=== PATIENT | male | born 1940 | race Caucasian/White ===

== ENCOUNTER 2017-10-04 10:12 | Day surgery (SDC) | payer MEDICARE, BC ==
[~2017-10-04 10:12] MED LIST: Buffered Lidocaine 0.9% SYRIN* 5 ML/SYR SYRINGE INTRADERM ONE
[2017-10-04] MEDS ORDERED: Ketorolac 0.5% OPHTH (NF) 0.5 % 5 ML BTL ONE (11:01)
[2017-10-04] MEDS ORDERED: Lidocaine 1%* 5 ML VIAL ONE (11:01)
[2017-10-04] MEDS ORDERED: Proparacaine 0.5% OPHTH.SOL* 15 ML BTL ONE (11:01)
[2017-10-04] MEDS ORDERED: Povidone Iodine 5% OPTH* 30 ML BTL ONE (11:01)
[2017-10-04] MEDS ORDERED: Lidocaine 2% EPI 1:200000 MPF*10-20 ML VIAL ONE (11:01)
[2017-10-04] MEDS ORDERED: Phenylephrine 2.5% OPTH.SOL* 2 ML BTL ONE (11:01)
[2017-10-04] MEDS ORDERED: acetaZOLAMIDE TAB* 250 MG ONE (11:01)
[2017-10-04] MEDS ORDERED: Cyclopentolate 1% OPTH.SOL* 2 ML BTL ONE (11:01)
[2017-10-04] MEDS ORDERED: Neomycin/Polymy/Dex OPTH.SUSP* MAXITROL 0.1% 5 ML ONE (11:01)
[2017-10-04] MEDS ORDERED: Midazolam* 1 MG/ML 2 ML VIAL (2 MG) ONE (12:59)
[2017-10-04 13:40] VITALS: BP 132/62
--- NOTE | 2017-10-04 15:40 | OP ---
DATE OF OPERATION: 10/04/2017. DATE OF : 1940. SURGEON: Pankaj García M.D. PREOPERATIVE DIAGNOSIS: Cataract left eye. POSTOPERATIVE DIAGNOSIS: Cataract left eye. OPERATIVE PROCEDURE: Extracapsular cataract extraction with intraocular lens implant left eye. PROCEDURE: The patient was brought to the operating room after being given 1/2 % Alcaine with epinephrine drops in the preoperative area. The eye was prepped and draped in the usual sterile fashion. Sterile drape and eyelid speculum were placed. Again, topical 1/2% Alcaine with epinephrine was given. A paracentesis incision was made at the 3 o'clock position with the No.75 blade. Clear cornea incision 2.2 x 2.2-mm was created at the 6 o'clock position starting at the anterior limbus using the 2.2-mm keratome. The anterior chamber was irrigated with 0.4 mL of 1% non-preservative intracameral lidocaine and filled with DisCoVisc. A capsulorrhexis was completed using the cystotome and the Utrata forceps. Hydrodissection was performed with balanced salt solution. The lens nucleus was removed with the Phacoemulsification handpiece without incident. Cortex was removed with the irrigation-aspiration handpiece. The capsular bag was re-inflated using DisCoVisc and an [id number] implant was inserted with the shooter. The irrigation-aspiration handpiece was used to remove all residual DisCoVisc. The eye was refilled with balanced salt solution and the wound checked and found to be watertight. Topical Maxitrol drops were given. [id number]/[facility] #: [id number] [facility] HOSPITALPamela
== END 2017-10-04 13:34 | disposition home or self-care (01) ==
LOC: OREAST 10:12
PROVIDERS: ATTEND Specialist
DX: H25.812 Combined forms of age-related cataract, left eye (principal); E11.3293 Type 2 diabetes mellitus with mild nonproliferative diabetic retinopathy without macular edema, bilateral; Z79.4 Long term (current) use of insulin; I25.10 Atherosclerotic heart disease of native coronary artery without angina pectoris; E78.00 Pure hypercholesterolemia, unspecified; I10 Essential (primary) hypertension; Z95.1 Presence of aortocoronary bypass graft; I25.2 Old myocardial infarction; Z95.810 Presence of automatic (implantable) cardiac defibrillator; Z87.891 Personal history of nicotine dependence; E78.5 Hyperlipidemia, unspecified; I71.4 Abdominal aortic aneurysm, without rupture; Z79.899 Other long term (current) drug therapy
CPT/HCPCS: A9270-GY; J2250; V2632

== ENCOUNTER 2018-03-15 11:15 | Inpatient (IN) | payer MEDICARE, BC ==
[2018-03-15] MEDS ORDERED: Acetaminophen TAB* 325 MG PO ONE (11:54)
[2018-03-15] MEDS ORDERED: NS 0.9% 1000 ML* 2,900 ML IV SCH (12:00)
[2018-03-15 12:11] LABS: Hematocrit 37 % (42-52); Hemoglobin 12.5 g/dl (14.0-18.0); Mean Corpuscular HGB Conc 34 g/dl (31-36); Mean Corpuscular Hemoglobin 33 pg (27-31); Mean Corpuscular Volume 97 fL (80-94); Mean Platelet Volume 5.9 fL (7.4-10.4); Platelet Count 132 10^3/ul (150-450); Red Blood Count 3.83 10^6/ul (4.00-5.40); Red Cell Distribution Width 18 % (10.5-15); White Blood Count 16.1 10^3/ul (3.5-10.8)
[2018-03-15 12:33] LABS: EGFR Non-African American 46.5 (>60)
--- NOTE | 2018-03-15 12:37 | ED ---
Sepsis HPI - HPI Summary HPI Summary: Pt is a 77 y/o male who presents to the ED c/o fatigue. He has been sick for 6 weeks; pt was on Augmentin for a UTI, then was on another course of Augmentin for bronchitis. Pt also reports intermittent sinusitis. Pt states while on Augmentin he feels better, but about 1 week after stopping the medication he begins to feel sick again. Yesterday, he felt weak and fatigued, and had decreased appetite. This morning after taking his medications, he had an episode of emesis and his ICD went off. Pts ICD has went off 3-4 times in the past 6 weeks. He also notes a dry cough over the past 6 weeks. He denies any current pain, but has a fever. Pt has DM, but denies any hx of blood clots, PNA , COPD, or asthma. Pt denies any chills, erythema, sore throat, CP, SOB, abdominal pain, diarrhea, constipation, dysuria, hematuria, myalgia, edema, rash , sores, stiff neck, dizziness, or lightheadedness. BP 115 bpm while in room. - History of Current Complaint Chief Complaint: EDWeakness Time Seen by Provider: 03/15/18 11:40 Stated Complaint: VOMITING AND GENERAL ILLNESS Hx Obtained From: Patient Onset/Duration: Started Weeks Ago - 6, Still Present Timing: Intermittent Current Severity: None Pain Intensity: 0 Pain Scale Used: 0-10 Numeric Alleviating Factor(s): Other: - Augmentin Associated Signs & Symptoms: Cough, Nausea, Vomiting - Allergy/Home Medications Allergies/Adverse Reactions: Allergies Allergy/AdvReac Type Severity Reaction Status Date / Time vancomycin Allergy Severe Hives Verified 09/27/17 13:59 Quinolones AdvReac Severe See Comment Verified 10/04/17 10:50 Home Medications: Home Medications Acetaminophen [Acetaminophen Extra Strength] 1,000 mg PO Q6H PRN 03/15/18 [ History Confirmed 03/15/18] Diazepam TAB(*) [Valium TAB(*)] 2.5 - 5 mg PO BEDTIME PRN 03/15/18 [History Confirmed 03/15/18] Glucagon,Human Recombinant [Glucagon Emergency Kit] 1 mg INJ ONCE PRN 03/15/18 [ History Confirmed 03/15/18] Hydrocortisone/Pramoxine [Analpram Hc] 1 cre NV TID PRN 03/15/18 [History Confirmed 03/15/18] Losartan TAB* [Cozaar TAB*] 50 mg PO DAILY 03/15/18 [History Confirmed 03/15/18] Magnesium Glycinate [Mag Glycinate] 100 mg PO DAILY 03/15/18 [History Confirmed 03/15/18] Multivitamins/Minerals TAB* [Theragran/minerals TAB*] 1 tab PO DAILY 03/15/18 [ History Confirmed 03/15/18] Nitroglycerin TAB 0.4 MG* 0.4 mg SL Q5M PRN 03/15/18 [History Confirmed 03/15/18 ] Lena-3 Fatty Acids (Nf) [Fish Oil (NF)] 1,000 mg PO TID 03/15/18 [History Confirmed 03/15/18] Potassium Chlor TAB (NF) [Kaon-Cl-10 TAB (NF)] 10 meq PO DAILY 03/15/18 [ History Confirmed 03/15/18] Rosuvastatin (NF) [Crestor (NF)] 5 mg PO DAILY 03/15/18 [History Confirmed 03/15] Sildenafil (NF) [Viagra (NF)] 50 mg PO DAILY PRN 03/15/18 [History Confirmed 09/25] PMH/Surg Hx/FS Hx/Imm Hx Endocrine/Hematology History: Reports: Hx Diabetes - TYPE 2 Denies: Hx Systemic Lupus Erythematosus, Other Endocrine/Hematological Disorders - blood clots Cardiovascular History: Reports: Hx Aneurysm - AAA, Hx Angina - HX OF, Hx Coronary Artery Disease - CONTROL WITH MEDS, Hx Hypercholesterolemia, Hx Hypertension - CONTROL WITH MEDS, Hx Pacemaker/ICD - [employer]/ICD implant, Hx Peripheral Vascular Disease - BILATERAL LEGS Denies: Hx Congestive Heart Failure, Other Cardiovascular Problems/Disorders Respiratory History: Denies: Hx Asthma, Hx Chronic Obstructive Pulmonary Disease (COPD), Hx Pneumonia, Other Respiratory Problems/Disorders GI History: Reports: Hx Gastroesophageal Reflux Disease - CONTROL WITH MEDS, Other GI Disorders - HX OF DIVERTICULOSIS - 2014 History: Denies: Hx Dialysis, Hx Renal Disease, Other Problems/Disorders Musculoskeletal History: Reports: Hx Arthritis - BACK Denies: Hx Rheumatoid Arthritis, Other Musculoskeletal History Sensory History: Reports: Hx Cataracts - RIGHT removed 04/2015, Hx Contacts or Glasses - GLASSES, Hx Deafness, Hx Hearing Aid - BILATERAL Opthamlomology History: Reports: Hx Cataracts - RIGHT removed 04/2015, Hx Contacts or Glasses - GLASSES Neurological History: Reports: Hx Nerve Disease - DIABETIC NEUROPATHY-BILATERAL FEET Denies: Other Neuro Impairments/Disorders - Cancer History Cancer Type, 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 2001 LAPAROSCOPIC CHOLECYSTECTOMY, [facility] [place] 2000 ANAL FISTULA REPAIR, [facility] [place]. 2000 ICD IMPLANTED, [place]. 2007 ICD BATTERY EXCHANGE R/T CELLULITIS. 2013 ICD GENERATOR CHANGE, [facility] [place]. 2015 COLONOSCOPY, [facility] [place]. KERATOSIS REMOVED FROM FACE, DR. GRANT WHITE. Right cataract removal with implant 2015 Hx Anesthesia Reactions: No Infectious Disease History: No Infectious Disease History: Denies: Traveled Outside the [place] in Last 30 Days - Family History Known Family History: Positive: Diabetes - Social History Alcohol Use: Daily Alcohol Amount: 1-2 Hx Substance Use: No Substance Use Type: Reports: None Hx Tobacco Use: Yes Smoking Status (MU): Former Smoker Type: Cigarettes Amount Used/How Often: 1 PPD Length of Time of Smoking/Using Tobacco: 10 YEARS Have You Smoked in the Last Year: No Review of Systems Positive: Fever, Fatigue, Other - Generalized weakness. Negative: Chills Negative: Erythema Negative: Sore Throat Negative: Chest Pain Positive: Cough. Negative: Shortness Of Breath Positive: Vomiting, Nausea. Negative: Abdominal Pain, Diarrhea, Other - constipation Negative: dysuria, hematuria Negative: Myalgia, Edema, Other - neck stiffness Negative: Rash, Other - sores Neurological: Other - NEGATIVE: dizziness, lightheadedness All Other Systems Reviewed And Are Negative: Yes Physical Exam - Summary Physical Exam Summary: Constitutional: Well-developed, Well-nourished, Alert. (-) Distressed Skin: Warm, Dry HENT: Normocephalic; Atraumatic Eyes: Conjunctiva normal Neck: Musculoskeletal ROM normal neck. (-) JVD, (-) Stridor, (-) Tracheal deviation Cardio: Rhythm regular, rate normal, Heart sounds normal; Intact distal pulses; Radial pulses are 2+ and symmetric. (-) Murmur. Symmetrically weak bilateral pedal pulses with good distal capillary refill. Pulmonary/Chest wall: Effort normal. (-) Respiratory distress, (-) Wheezes, (-) Rales Abd: Soft, (-) epigastric tenderness, (-) Distension, (-) Guarding, (-) Rebound Musculoskeletal: (-) Edema Lymph: (-) Cervical adenopathy Neuro: Alert, Oriented x3 Psych: Mood and affect Normal Triage Information Reviewed: Yes Vital Signs On Initial Exam: Initial Vitals Temp Pulse Resp BP Pulse Ox 99.6 F 124 26 136/72 98 03/15/18 11:22 03/15/18 11:22 03/15/18 11:22 03/15/18 11:22 03/15/18 11:22 Vital Signs Reviewed: Yes Diagnostics - Vital Signs Vital Signs Temp Pulse Resp BP Pulse Ox 03/15/18 11:41 92 12 95 03/15/18 11:40 98 157/89 95 03/15/18 11:22 99.6 F 124 26 136/72 98 - Laboratory Lab Results: Lab Results 03/15/18 03/15/18 Range/Units 11:57 11:57 WBC 16.1 H (3.5-10.8) 10^3/ul RBC 3.83 L (4.00-5.40) 10^6/ul Hgb 12.5 L (14.0-18.0) g/dl Hct 37 L (42-52) % MCV 97 H (80-94) fL MCH 33 H (27-31) pg MCHC 34 (31-36) g/dl RDW 18 H (10.5-15) % Plt Count 132 L (150-450) 10^3/ul MPV 5.9 L (7.4-10.4) fL Neut % (Auto) Pending Lymph % (Auto) Pending Coffee % (Auto) Pending Eos % (Auto) Pending Baso % (Auto) Pending Absolute Neuts (auto) Pending Absolute Lymphs (auto) Pending Absolute Monos (auto) Pending Absolute Eos (auto) Pending Absolute Basos (auto) Pending Absolute Nucleated RBC Pending Nucleated RBC % Pending Sodium 131 L (135-145) mmol/L Potassium 3.7 (3.5-5.0) mmol/L Chloride 99 L (101-111) mmol/L Carbon Dioxide 19 L (22-32) mmol/L Anion Gap 13 H (2-11) mmol/L BUN 18 (6-24) mg/dL Creatinine 1.47 H (0.67-1.17) mg/dL Est GFR ( Amer) 56.2 (>60) Est GFR (Non-Af Amer) 46.5 (>60) BUN/Creatinine Ratio 12.2 (8-20) Glucose 156 H (70-100) mg/dL Calcium 9.0 (8.6-10.3) mg/dL Total Bilirubin 1.30 H (0.2-1.0) mg/dL AST 13 (13-39) U/L ALT 14 (7-52) U/L Alkaline Phosphatase 78 (34-104) U/L Troponin I 0.02 (<0.04) ng/mL Total Protein 6.6 (6.4-8.9) g/dL Albumin 3.7 (3.2-5.2) g/dL Globulin 2.9 (2-4) g/dL Albumin/Globulin Ratio 1.3 (1-3) Result Diagrams: 03/18/18 05:25 03/18/18 05:25 Lab Statement: Any lab studies that have been ordered have been reviewed, and results considered in the medical decision making process. - Radiology CXR Radiology Interpretation Completed By: Radiologist Summary of Radiographic Findings: NO PNEUMOTHORAX IS NOTED. PACEMAKER LEADS ARE IN PLACE. ED physician reviewed radiology report. - EKG 11:31 Cardiac Rate: Tachycardia - 115 bpm EKG Rhythm: Sinus Rhythm Ectopy: PVCs Summary of EKG Findings: No STEMI Course/Dx - Course Course Of Treatment: Pt is a 77 y/o male who presents to the ED c/o fatigue. He has been sick for 6 weeks; pt was on Augmentin for a UTI, then was on another course of Augmentin for bronchitis. Pt also reports intermittent sinusitis. Pt states while on Augmentin he feels better, but about 1 week after stopping the medication he begins to feel sick again. Yesterday, he felt weak and fatigued, and had decreased appetite. This morning after taking his medications, he had an episode of emesis and his ICD went off. Pts ICD has went off 3-4 times in the past 6 weeks. He also notes a dry cough over the past 6 weeks. He denies any current pain, but has a fever. Final dx are sepsis and UTI. Pt will be admitted. - Differential Dx/Clinical Impression Provider Diagnosis: Sepsis, UTI (urinary tract infection) - Provider Notifications Discussed Care Of Patient With: Laverne Randhawa Time Discussed With Above Provider: 13:24 Instructed by Provider To: Admit As Inpatient - Critical Care Time Critical Care Time: 30-74 min - 45 minutes Discharge - Sign-Out/Discharge Documenting (check all that apply): Patient Departure - Admit - Discharge Plan Condition: Stable Disposition: ADMITTED TO [facility] - Billing Disposition and Condition Condition: STABLE Disposition: Admitted to [facility] - Attestation Statements Document Initiated by Scribe: Yes Documenting Scribe: Monique Velez Provider For Whom Scribe is Documenting (Include Credential): Stepan Rodriguez MD Scribe Attestation: Monique Chicas, scribed for Stepan Rodriguez MD on 03/19/18 at 1034. Scribe Documentation Reviewed: Yes Provider Attestation: The documentation as recorded by the virginieibeMonique accurately reflects the service I personally performed and the decisions made by Stepan chen MD Status of Scribe Document: Viewed
[2018-03-15] MEDS ORDERED: cefTRIAXone(*) 1 GM in NS 0.9% 50 ML* 50 ML IVPB ONE (12:40)
[2018-03-15 12:42] LABS: ABS Basophils 0 10^3/ul (0-0.2); ABS Eosinophils 0 10^3/ul (0-0.6); ABS Lymphocytes 0.8 10^3/ul (1.0-4.8); ABS Monocytes 1.9 10^3/ul (0-0.8); ABS Neutrophils 13.3 10^3/ul (1.5-7.7); ABS Nucleated RBC 0 10^3/ul; Eosinophil % 0.1 %; Lymphocyte % 5.3 %; Nucleated Red Blood Cells % 0.1
[2018-03-15 13:09] LABS: Urine Appearance Turbid; Urine Blood 1+ (Negative); Urine Color Amber; Urine Ketones Negative (Negative); Urine Protein 2+(100 mg/dL) (Negative); Urine Red Blood Cell 2+(6-10/hpf) (Absent); Urine Specific Gravity 1.017 (1.010-1.030); Urine Urobilinogen Negative (Negative); Urine White Blood Cell 3+(>20/hpf) (Absent)
[2018-03-15] MEDS ORDERED: cefTRIAXone(*) 1 GM ADVAN/BAG ONE (13:19)
[2018-03-15] MEDS ORDERED: Acetaminophen TAB* 325 MG PO PRN (14:32)
[2018-03-15] MEDS ORDERED: Dextrose 50% Syringe 50 ML* 25 GM/50 ML SYRINGE IV PUSH PRN (14:38)
[2018-03-15] MEDS ORDERED: NS 0.9% 1000 ML* 1,000 ML IV SCH (14:45)
[2018-03-15] MEDS ORDERED: Potassium Chlor TAB* 20 MEQ TAB.ER PO ONE (14:52)
[2018-03-15 15:12] LABS: INR 1.45 (0.77-1.02)
[2018-03-15] MEDS: Insulin LISPRO* 1 UNITS UNIT SUBCUT SCH (16:30)
[2018-03-15] MEDS: Aspirin EC TAB* 325 MG PO SCH (16:37)
[2018-03-15] MEDS: Clopidogrel TAB* 75 MG PO SCH (16:37)
[2018-03-15] MEDS: Magnesium Sulfate 2 GM IV* 2 GM/50 ML BAG IVPB ONE ×2 (17:54→17:57)
[2018-03-15] MEDS ORDERED: Metoprolol Tartrate TAB* 25 MG PO SCH (21:00)
[2018-03-15] MEDS ORDERED: Amiodarone TAB* 400 MG PO SCH (21:00)
--- NOTE | 2018-03-15 21:01 | HP ---
CC: Dr. Lane; Dr. Soriano; Dr. Esparza; Dr. Mcguire; Dr. Ramirez * HISTORY AND PHYSICAL: DATE OF ADMISSION: 03/15/18 PRIMARY CARE PROVIDER: Dr. Lane. PRIMARY WEB DESIGN SPECIALIST: Dr. Soriano. MY ATTENDING PHYSICIAN WHILE IN THE HOSPITAL: Dr. Laverne Randhawa * (report dictated by Pj Tam NP). CHIEF COMPLAINT: 1. Not feeling well. 2. Fatigue and weakness. HISTORY OF PRESENT ILLNESS: Mr. Teixeira is a 77-year-old male patient who is a diabetic. He has a history of CAD, hypertension, history of V-tach, GERD, hyperlipidemia, cardiomyopathy, obesity, PAD, and history of diverticulitis. He says that since January, he has had 2 distinct episodes of not feeling well. He says that since January, he has had a couple of episodes of just not feeling well, feeling fatigued, weak, febrile, chills. He saw his primary at the end of January, he was diagnosed with UTI. He took a week's course of Augmentin, he felt great. About a week after being off Augmentin, he went back with similar symptoms again, and was diagnosed with recurrent UTI. He was placed back on Augmentin. He says for a week, again helped him. He had 2 weeks of feeling well and then he comes in today. He says the last couple of days he is again febrile, chills. He had a fever last night of 101.7, aching. No urinary symptoms. No back pain. He had 1 episode of vomiting today after he took his pills and his defibrillator fired. He has not been having any chest pain. He has not been having any shortness of breath. He denies any flank pain, tenderness. He just says he feels full. He denies any cough. No respiratory symptoms. He says that he has not had any episodes of fainting or seizure-like activity. No shortness of breath or orthopnea or weight gain. He says his appetite the last few days has not been well. He came into the ED, it was noted that he had an elevated white count, his lactate was mildly elevated, and his urine was suspicious for UTI. He was afebrile here, but he did have a fever at home. He presented to the ED today, he was evaluated and because of the concern for a sepsis, possible prostatitis, we were asked to evaluate for admission. PAST MEDICAL HISTORY: Significant for: 1. Diabetes. 2. CAD. 3. Hypertension. 4. V-tach. 5. GERD. 6. Hyperlipidemia. 7. Cardiomyopathy, last known EF of 45%. 8. Obesity. 9. PAD. 10. Diverticulitis. PAST SURGICAL HISTORY: He has had: 1. CABG. 2. Laparoscopic cholecystectomy. 3. Anal fissure repair. 4. Defibrillator placement. MEDICATIONS: Home meds include: 1. Hydrocortisone 1 application p.r. t.i.d. as needed. 2. Amoxicillin 4 tablets p.o. once prior to dental work. 3. Glucagon 1 mg IM once as needed. 4. Valium 2.5 to 5 mg at bedtime as needed. 5. Viagra 50 mg daily as needed. 6. Nitro 0.4 mg sublingual q.5 minutes x3 p.r.n. chest pain. 7. Magnesium glycinate 100 mg daily. 8. Tylenol Extra Strength 1000 mg every 6 hours as needed. 9. [place]-3 1000 mg p.o. t.i.d. 10. Multivitamin 1 tablet daily. 11. Aspirin 325 mg daily. 12. Lispro sliding scale, take as directed. 13. Lantus 35 units subcu b.i.d. 14. Potassium 10 mEq daily. 15. Celebrex 100 mg p.o. daily. 16. Hydrochlorothiazide 12.5 mg daily. 17. Plavix 75 mg daily. 18. Amlodipine 5 mg daily. 19. Metoprolol 37.5 mg p.o. b.i.d. 20. Cozaar 50 mg daily. 21. Crestor 5 mg daily. 22. Pletal 100 mg p.o. b.i.d. 23. Protonix 40 mg daily. ALLERGIES TO MEDICATIONS: Include VANCO and QUINOLONES. FAMILY HISTORY: His mother of old age. Father had a history of CVA. SOCIAL HISTORY: He is a former smoker. He does drink wine with dinner. Surrogate decision maker is his . REVIEW OF SYSTEMS: There is a documented fever. He denied any significant weight change. There is no double vision. He denied having any ear discharge. He denied having any rhinorrhea. There was no sore throat. No thyroid enlargement. He denied having any chest pain. There was no orthopnea. He denied having any nocturnal dyspnea. There was no abdominal pain. There was no nausea, no vomiting. There was no dysuria, there was no frequency. He denied having any seizure. No loss of consciousness. No pruritus and no skin ulcerations. Review of 14 systems completed, all others negative. PHYSICAL EXAMINATION GENERAL: At this time, Mr. Marks is a 77-year-old male patient. He is sitting in the ED stretcher. He does not appear to be in any acute distress. He appears to be well nourished and well developed. VITAL SIGNS: Blood pressure 107/56, pulse 94, respirations were 20, O2 sat 94% , temperature 98.5. HEENT: Head: Atraumatic, normocephalic. Eyes: EOMs are intact. Sclerae anicteric and not pale. Throat: Oral mucosa appears to be most. No oropharyngeal erythema. NECK: Supple. LUNGS: Clear to auscultation bilaterally. There were no wheezes, rales, or rhonchi. HEART: Sounds S1, S2. He had a regular rate and rhythm. No murmurs, rubs, or gallops. ABDOMEN: Soft. It was flat. It was nontender. Bowel sounds were present. EXTREMITIES: Pulses were 2+ throughout. He is moving all 4 extremities with 5/ 5 strength. NEUROLOGIC: He is awake. He is alert. He is oriented x3. His tongue is midline. Bottle Assembler were equal. He had no gross focal deficits. SKIN: Intact. DIAGNOSTIC STUDIES/LAB DATA: Today reveals, WBC of 16.1, RBC of 3.83, hemoglobin of 12.5, hematocrit of 37, and platelet count of 132. His sodium was 131, potassium was 3.7, chloride was 99, bicarb 19, BUN 18, creatinine 1.47 , glucose 156, lactate 2.6, calcium 9. Total bili 1.3, AST 13, ALT 14, alk phos 78. Troponin 0.02. Albumin was 3.7. Urine showed 2+ protein, 1+ blood, 3 + leukocyte esterase, 3+ wbc's, 2+ rbc's, 1+ bacteria. He had a chest x-ray obtained today, showed no pneumothorax. Pacemaker leads are in place. He had an EKG obtained today, which showed sinus tachycardia rate of 115 with a PVC. He does have intraventricular conduction delay. When you review it with the previous EKG, it appears to be similar. Old medical records were reviewed. Again, last echo, in August of this year, EF was 30% to 35%. ASSESSMENT AND PLAN: Mr. Teixeira is a 77-year-old male patient coming in to the ED today with complaints of weakness, fatigue, not feeling well, and on evaluation was found to be septic secondary to possible prostatitis. He will be admitted under inpatient status for: 1. Sepsis. Evidenced by his elevated white count, he is again tachypneic in the 20s. He did receive the 30 cc per kg bolus. He received IV antibiotics. We will cordova culture him. I do presume that he has prostatitis. I did touch base with Urology, the plan will be to get a bladder scan done now. If he is retaining, we will place a Weiss. I am getting a CT of the abdomen and pelvis to make sure there is no obstruction of stones. I think this is less likely because he is not having any pain. If there is any obstruction, I certainly will get Urology in to see him more urgently. I did touch base with Dr. Mcguire, who will evaluate the patient tomorrow. We will place him on Rocephin for the time being and we will continue to follow him closely. 2. History of coronary artery disease with cardiomyopathy. His defibrillator did fire, I did touch base with Cardiology. The plan will be to interrogate and to follow. I will continue his beta lucie and I will try to get his potassium around 4, mag around 2. Check his TSH and will place him on telemetry. I will cycle his troponins and I will continue to monitor. Should there be any discrepancies with the defibrillator, we certainly will get Cardiology to reprogram. 3. Diabetes. He will be on lispro sliding scale and Lantus. 4. Hypertension. I am holding his Cozaar and hydrochlorothiazide. I have continued his beta blockade. 5. Ventricular tachycardia. Continue his beta blockade and try to optimize electrolytes. 6. Gastroesophageal reflux disease. Continue PPI therapy. 7. Hyperlipidemia. Continue statin therapy. 8. Cardiomyopathy. We will restart his ARB when he is out of this acute illness. We will diurese him as needed. He appears to be dry currently. He does not appear to be in failure. We will monitor. 9. History of peripheral arterial disease. Continue meds as prescribed. 10. DVT prophylaxis. He will be placed on heparin subcu. 11. Code status. Full code. 12. Fluids, electrolytes, and nutrition. He can have a consistent carb diet. TIME SPENT: On the admission was 60 minutes; greater than half the time was spent [id number] with the patient obtaining my history and physical, other half the time was spent going over the plan of care with the patient and implementing plan of care. I did discuss the plan of care with my attending, Dr. Randhawa; she is in agreement. PJ TAM, HECTOR [id number]/[facility] #: [id number] [facility]
[2018-03-15] MEDS: Cilostazol TAB* 100 MG PO SCH (21:38)
[2018-03-15] MEDS: Tamsulosin CAP* 0.4 MG PO SCH (21:38)
[2018-03-15] MEDS: Metoprolol Tartrate TAB* 50 mg PO SCH (21:38)
[2018-03-15] MEDS: Heparin VIAL(*) 5000 UNITS/ML VIAL (FIVE THOUSAND) SUBCUT SCH (21:40)
[2018-03-15] MEDS: Insulin GLARGINE(*) 1 UNITS UNIT SUBCUT SCH (21:40)
--- NOTE | 2018-03-15 22:07 | CONS ---
CC: Hospitalist service; Dr. Ramirez; Dr. Soriano; Dr. Lane * CARDIOLOGY CONSULT NOTE: DATE OF CONSULT: 03/15/18 HISTORY OF PRESENT ILLNESS: I was asked hospitalist service to see this 77-year - old male patient who has not been feeling well especially with the abdominal pain and also noticed his ICD has been "firing". The patient presented to the emergency room. He was found to have a white blood cell elevated at 16.1 and had abnormality in his urine with UTI positive. His ICD was further interrogated today and he was found to have total 16 episodes of ventricular tachycardia, 12 out of them were terminated with the pace terminated episodes and 4 out of the 4 were shock terminated. The total shocks were officially 4. He also was found to have significantly low magnesium. His magnesium today was 1.1. His potassium also was borderline low at 3.7. He does give no history of chest pain, no significant shortness of breath, no orthopnea, no PND, no dizziness, no syncope, no fever, no chills. No skin rash or tremors. No hematochezia is appreciated. His temperature was 99.5 as of now. PAST MEDICAL HISTORY: Extensive and includin. Known history of coronary artery disease. 2. Mixed hyperlipidemia. 3. Peripheral vascular disease. 4. Old myocardial infarction. 5. Coronary artery bypass grafting. 6. Systemic arterial hypertension. 7. ICD. 8. Paroxysmal ventricular tachycardia. 9. History of obesity. 10. Cardiomyopathy. 11. Gastroesophageal reflux disease. 12. He also does have history of abdominal aortic aneurysm and claudication. PAST SURGICAL HISTORY: His cardiac procedures, pacemaker in 2000 and then 2000 for the ICD, cardiac cath 2003 the last one. MEDICATIONS: His medications as an outpatient include: 1. Crestor 5 mg daily. 2. Fish oil 1000, 3 of them daily. 3. Lisinopril 40 mg daily. 4. Amlodipine 5 mg daily. 5. Metoprolol 25 mg one and a half twice daily. 6. Aspirin 325 mg daily. 7. Plavix 75 mg daily. 8. Potassium 10 mEq daily. 9. Hydrochlorothiazide 25 mg half daily. 10. Pletal 100 mg twice a day. 11. Lantus 38 units b.i.d. He is also on: 1. Humalog insulin. 2. Multivitamins. 3. Vitamin D3. 4. Glucagon. 5. Magnesium 400, 1 to 2 p.o. as tolerated. ALLERGIES: Allergic to multiple medications including VANCOMYCIN, LEVAQUIN, LOPID, TRICOR, NIACIN, LIPITOR, ACTOS, COREG, and ALDACTAZIDE. FAMILY HISTORY: Father NH at age 62. SOCIAL HISTORY: Used to smoke. He quit in 1973. Occasionally drinks alcohol. No history of illicit drug use. REVIEW OF SYSTEMS: His review of all other systems essentially negative. PHYSICAL EXAM: On exam, awake, alert, and oriented. He does not feel quite well because of his abdomen. Vitals: Blood pressure 110/70, pulse 76 with sinus rhythm. Head and Neck Exam: Normocephalic, atraumatic head. Ears, nose , and throat essentially benign. Neck is supple. JVP is not elevated. No carotid bruit. No masses in the neck are appreciated. Chest: Diminished air entry bilaterally. No rales, no wheeze. Heart: Normal. S1, S2. No added sounds. No gallops, no rubs. Abdomen: Benign, soft. Positive bowel sounds. Extremities: No edema, no cyanosis, no clubbing. Skin exam is normal. Psych: Normal affect and mood. CHASSIS ENGINEER: No focal deficit is appreciated. DIAGNOSTIC STUDIES/LAB DATA: Lab showed the following: Sodium 131, potassium 3.7, chloride 99, total CO2 19, BUN 18, creatinine 1.47, lactic acid 2.6, magnesium 1.1. LFTs normal. Troponins negative. TSH normal. Urine is positive and white blood cell 16.1, hemoglobin 12.5, hematocrit 37, platelets 132. His echo from the system back in August 2017 showed technically difficult study and cannot rule out apical clot. Ejection fraction 30% to 35%. His CT of the abdomen and pelvis done today. No obstructive uropathy is noted. Prostate normal size. Chest x-ray, no pneumothorax. Pacemaker in place. IMPRESSION: The patient is a 77-year-old male patient with: 1. Presentation with abdominal pain, leukocytosis and probably low-grade temperature and urinary tract infection, possible prostatitis as well. 2. Extensive cardiac history as outlined above with ischemic cardiomyopathy, last EF reported 30% to 35%. 3. Status post ICD implantation. 4. ICD shocks, further interrogation appropriately functioning ICD for ventricular tachycardic treatment. 5. Significant hypomagnesemia. 6. Peripheral vascular disease. 7. Coronary artery bypass grafting. 8. Old myocardial infarction. 9. Hyperlipidemia. 10. Diabetes mellitus. 11. Systemic arterial hypertension. 12. History of paroxysmal ventricular tachycardia. PLAN: I have discussed this with the patient as well as with Pj Tam from the hospitalist service. It is very important to keep his potassium 4 or more, magnesium needs to be replenished aggressively to at least 2 or more tonight, stay well hydrated is important treatment for UTI as you are already doing is important and echocardiogram to follow up on his left ventricular systolic function although in the past was technically difficult study. Continue medications with aspirin; Lipitor; Pletal; Plavix; heparin; Lantus; Lopressor, I advice increasing to 50 mg twice a day, he was on 37.5 twice a day. I agree with potassium supplement for tonight as well. Someone can consider one bolus dose of amiodarone 300 mg for tonight and reevaluate as well. We will follow this patient closely with you. Thank you very much for asking us to participate in the care of this patient. TIME SPENT: More than half of at least 60 to 65 plus minutes was in the face-to - face education and counseling mode, discussing this with the patient as well as discussing with the hospitalist service of future plan. [id number]/[facility] #: [id number] SOLE
[2018-03-16] MEDS: Heparin VIAL(*) 5000 UNITS/ML VIAL (FIVE THOUSAND) SUBCUT SCH ×3 (05:19→20:43)
[2018-03-16 06:15] LABS: ABS Basophils 0 10^3/ul (0-0.2); ABS Eosinophils 0 10^3/ul (0-0.6); ABS Lymphocytes 0.8 10^3/ul (1.0-4.8); ABS Monocytes 1.3 10^3/ul (0-0.8); ABS Neutrophils 8.9 10^3/ul (1.5-7.7); ABS Nucleated RBC 0 10^3/ul; Eosinophil % 0.1 %; Hematocrit 33 % (42-52); Hemoglobin 11.1 g/dl (14.0-18.0); Lymphocyte % 7.7 %; Mean Corpuscular HGB Conc 34 g/dl (31-36); Mean Corpuscular Hemoglobin 33 pg (27-31); Mean Corpuscular Volume 98 fL (80-94); Mean Platelet Volume 6.1 fL (7.4-10.4); Nucleated Red Blood Cells % 0; Platelet Count 109 10^3/ul (150-450); Red Blood Count 3.36 10^6/ul (4.00-5.40); Red Cell Distribution Width 18 % (10.5-15)
[2018-03-16] MEDS: Insulin LISPRO* 1 UNITS UNIT SUBCUT SCH ×3 (07:52→17:57)
[2018-03-16] MEDS ORDERED: Magnesium Sulfate IV* 3 GM in NS 0.9% 100 ML* 100 ML IVPB ONE (08:43)
[2018-03-16] MEDS: CMC: Pantoprazole TAB (NF) 40 MG TAB PO SCH (08:50)
[2018-03-16] MEDS: Cilostazol TAB* 100 MG PO SCH ×2 (08:50→20:43)
[2018-03-16] MEDS: Atorvastatin* 10 MG TAB PO SCH (08:50)
[2018-03-16] MEDS: Insulin GLARGINE(*) 1 UNITS UNIT SUBCUT SCH ×2 (08:51→20:43)
[2018-03-16] MEDS: Metoprolol Tartrate TAB* 50 mg PO SCH (08:51)
[2018-03-16] MEDS ORDERED: Potassium Chlor TAB* 10 MEQ TAB.ER PO SCH (09:00)
[2018-03-16] MEDS ORDERED: Amiodarone 150 MG IVPREMIX* 150 MG/100 ML BAG IV ONE (10:29)
--- NOTE | 2018-03-16 10:41 | PN ---
Subjective Date of Service: 03/16/18 Interval History: per nursing staff patient is having frequent runs of Vatch on monitor - mg 1.5 this am - in which 3gms Iv was started however he continues to have frequent runs of vtach. Per patient he felt his defibrillator go off once - otherwise he is asymptomatic. He denies CP/SOB. No dizziness or lightheadedness. Discussed with pt plan to start amiodarone and send to ICU. Pt reports he continues to feel fatigued. he denies any fever/chills. No urinary symptoms. Denies cough. No N/V/D. Objective Active Medications: Acetaminophen (Tylenol Tab*) 650 mg PO Q4H PRN PRN Reason: FEVER/PAIN Aspirin (Ecotrin Ec Tab*) 325 mg PO QPM [facility] Last Admin: 03/15/18 16:37 Dose: 325 mg Atorvastatin Calcium (Lipitor*) 10 mg PO DAILY [facility]; Protocol Last Admin: 03/16/18 08:50 Dose: 10 mg Cilostazol (Pletal Tab*) 100 mg PO BID [facility] Last Admin: 03/16/18 08:50 Dose: 100 mg Clopidogrel Bisulfate (Plavix Tab*) 75 mg PO QPM [facility] Last Admin: 03/15/18 16:37 Dose: 75 mg Dextrose (D50w Syringe 50 Ml*) 12.5 gm IV PUSH .FOR FS < 60 - SS PRN PRN Reason: FS < 60 Heparin Sodium (Porcine) (Heparin Vial(*)) 5,000 units SUBCUT Q8HR [facility] Last Admin: 03/16/18 05:19 Dose: 5,000 units Ceftriaxone Sodium 1 gm/ (Sodium Chloride) 50 mls @ 200 mls/hr IVPB Q24H [facility] Magnesium Sulfate 3 gm/ Sodium (Chloride) 106 mls @ 53 mls/hr IVPB ONCE ONE Stop: 03/16/18 10:42 Last Admin: 03/16/18 08:59 Dose: 53 mls/hr Amiodarone HCl (Nexterone Drip*) 150 mg in 100 mls @ 600 mls/hr IV ONCE ONE Stop: 03/16/18 10:38 Amiodarone HCl (Nexterone 360 Mg/200 Ml Ivpremix*) 360 mg in 200 mls @ 33.333 mls/hr IV ONCE ONE Stop: 03/16/18 16:33 Insulin Glargine (Lantus(*)) 35 units SUBCUT BID [facility] Last Admin: 03/16/18 08:51 Dose: 35 units Insulin Human Lispro (Humalog*) 0 units SUBCUT AC [facility]; Protocol Last Admin: 03/16/18 07:52 Dose: Not Given Metoprolol Tartrate (Lopressor Tab*) 50 mg PO BID [facility] Last Admin: 03/16/18 08:51 Dose: 50 mg Pantoprazole Sodium (Protonix Tab (Nf)) 40 mg PO QAM [facility] Last Admin: 03/16/18 08:50 Dose: 40 mg Potassium Chloride (Klor Con Er Tab*) 10 meq PO DAILY [facility] Last Admin: 03/16/18 08:50 Dose: 10 meq Tamsulosin HCl (Flomax Cap*) 0.4 mg PO BEDTIME [facility] Last Admin: 03/15/18 21:38 Dose: 0.4 mg Vital Signs - 8 hr 03/16/18 03/16/18 04:11 08:57 Temperature 98.7 F 97.7 F Pulse Rate 91 107 Respiratory 16 24 Rate Blood Pressure 96/51 123/45 (mmHg) O2 Sat by Pulse 95 95 Oximetry Oxygen Devices in Use Now: None Appearance: 77 yo male laying in bed A+O x3 in NAD Eyes: No Scleral Icterus, PERRLA Ears/Nose/Mouth/Throat: NL Teeth, Lips, Gums, Mucous Membranes Moist Neck: NL Appearance and Movements; NL JVP Respiratory: Symmetrical Chest Expansion and Respiratory Effort, Clear to Auscultation Cardiovascular: NL Sounds; No Murmurs; No JVD, RRR, No Edema Abdominal: NL Sounds; No Tenderness; No Distention, - - onese Extremities: No Edema, No Clubbing, Cyanosis Skin: No Rash or Ulcers, No Nodules or Sclerosis Neurological: Alert and Oriented x 3, NL Sensation, NL Muscle Strength and Tone Lines/Tubes/Other Access: Clean, Dry and Intact Peripheral IV Nutrition: Taking PO's Result Diagrams: 03/16/18 05:58 03/16/18 05:58 Additional Lab and Data: Lab Results 03/15/18 03/15/18 Range/Units 11:57 11:57 WBC 16.1 H (3.5-10.8) 10^3/ul RBC 3.83 L (4.00-5.40) 10^6/ul Hgb 12.5 L (14.0-18.0) g/dl Hct 37 L (42-52) % MCV 97 H (80-94) fL MCH 33 H (27-31) pg MCHC 34 (31-36) g/dl RDW 18 H (10.5-15) % Plt Count 132 L (150-450) 10^3/ul MPV 5.9 L (7.4-10.4) fL Neut % (Auto) Pending Lymph % (Auto) Pending Refugio % (Auto) Pending Eos % (Auto) Pending Baso % (Auto) Pending Absolute Neuts (auto) Pending Absolute Lymphs (auto) Pending Absolute Monos (auto) Pending Absolute Eos (auto) Pending Absolute Basos (auto) Pending Absolute Nucleated RBC Pending Nucleated RBC % Pending Sodium 131 L (135-145) mmol/L Potassium 3.7 (3.5-5.0) mmol/L Chloride 99 L (101-111) mmol/L Carbon Dioxide 19 L (22-32) mmol/L Anion Gap 13 H (2-11) mmol/L BUN 18 (6-24) mg/dL Creatinine 1.47 H (0.67-1.17) mg/dL Est GFR ( Amer) 56.2 (>60) Est GFR (Non-Af Amer) 46.5 (>60) BUN/Creatinine Ratio 12.2 (8-20) Glucose 156 H (70-100) mg/dL Calcium 9.0 (8.6-10.3) mg/dL Total Bilirubin 1.30 H (0.2-1.0) mg/dL AST 13 (13-39) U/L ALT 14 (7-52) U/L Alkaline Phosphatase 78 (34-104) U/L Troponin I 0.02 (<0.04) ng/mL Total Protein 6.6 (6.4-8.9) g/dL Albumin 3.7 (3.2-5.2) g/dL Globulin 2.9 (2-4) g/dL Albumin/Globulin Ratio 1.3 (1-3) Microbiology and Other Data: Microbiology 03/15/18 11:56 Aerobic Blood Culture - Preliminary Blood Venous Escherichia Coli Anaerobic Blood Culture - Preliminary Escherichia Coli 03/15/18 15:36 Influenza Types A,B Antigen - Final Nasal Specimen received for Influenza A/B Molecular testing Assess/Plan/Problems-Billing Assessment: 77 yo male with a PMH of DM2, CAD, HTN, hx of vatch s/p defibrillator, cardiomyopathy, obesity, PAD who presented to the ED on 03/15 with c/o of not feeling well, fatigue, fever and generalized weakness. recent abx in January for UTI x2 with augmentin. He reports intermittent fevers with temp 101.7 the night prior to admission. He was found to have frequent Vtach (4 episodes) with pacer interrogation, now having frequent nonsustained vtach epsiodes, plan to transfer to ICU for amiodarone gtt. Found to have ecoli bacteremia. - Patient Problems (1) Bacteremia Comment: - Sepsis on admission. Premilinary BC growing ecoli. Suspect prostatitis/uti. - Abdomen/Pelvis CT w/o no obstructive uropathy. chest xray - negative. - switch ceftriaxone to cefepime for broader coverage until sensitivities result - ID to consult (2) Ventricular tachycardia Comment: - in the setting of hypomagnesium & bacteremia - hx of vtach s/p defibrillator - interrogation showing firing at home recently. Was found to have mg 1.1 on admission -> given replacement, still low this am in which he is ordered 3gm IV x1 and will repeat mg+ level tonight. Due to increase in nonsustained VTach runs this am - pt has been started on IV amiodarone -> transfer to [facility] for amio gtt. - appreciate cardiology consult - agrees with the plan -> recommended decreasing BB back to home dose - TTE - Goal to keep K+ 4 and Mg+ 2 (3) CAD (coronary artery disease) Comment: - negative troponins - continue ASA, Plavix, Pletal, BB (4) Cardiac defibrillator in place (5) GERD (gastroesophageal reflux disease) Comment: - protonix (6) HTN (hypertension) Comment: - continue home dose BB, hold losartan, HTCZm norvasc with soft BP's (7) Ischemic cardiomyopathy Comment: - last echo EF 30% in 08/2017 - continue cardiac meds as stated above - Repeat TTE (8) PVD (peripheral vascular disease) Comment: - continue ASA, Plavix, Pletal (9) Type 2 diabetes mellitus Comment: - continue FSBG AC - home dose lantus 354 units BID, kemal ss (10) DVT prophylaxis Comment: HSQ (11) Full code status Status and Disposition: inpatient. Transfer to [facility] for amiodarone gtt.
[2018-03-16] MEDS: Amiodarone 360 MG IVPREMIX* 360 MG/200 ML BAG IV ONE ×2 (11:16→16:36)
[2018-03-16] MEDS: Cefepime 2 GM in Dextrose(*) 2 GM/50 ML BAG IV SCH (11:49)
[2018-03-16] MEDS ORDERED: cefTRIAXone(*) 1 GM in NS 0.9% 50 ML* 50 ML IVPB SCH (13:00)
[2018-03-16] MEDS ORDERED: Perflutren Lipid Microsphere* 3 ML VIAL ONE (13:31)
--- NOTE | 2018-03-16 15:59 | ECHO ---
Patient: GUSTAVO PETER [facility] Rec#: [id number] : 1940 Date: 03/16/2018 Age: 77y Height: 168 cm / 66.1 in Weight: 96.1 kg / 211.8 lbs Sex: M BSA: 2.1 Room#: ICU 12 Admit Date#: 03/15/2018 Type: Inpatient Referring: Shital Parker Reading: Isabel Ramirez MD Short Story Writer: Trinh Kim RN RDCS CC: Sarah Lane MD Transthoracic Echocardiogram Indication: Cardiomyopathy BP: 123/45 HR: 77 Rhythm: NSR with PVCs Findings History: CAD, CABG, HTN, HLD, DM, ICD/pacemaker. Technical Comments: The study is technically limited due to patient body habitus. Left Ventricle: The left ventricular chamber size is normal. Basal interventricular septum shows moderate thickening. There are multiple regional wall motion abnormalities. There is moderately decreased left ventricular systolic function. The estimated ejection fraction is 30-35%. Post surgical hypokinesis of the interventricular septum is observed consistent with coronary artery bypass. The assessment of diastolic function is non-diagnostic. Left Atrium: The left atrium is mildly dilated. Right Ventricle: The right ventricular cavity size is normal. The right ventricular global systolic function is low normal. A pacemaker wire is visualized in the right ventricle. Right Atrium: The right atrium is mildly dilated. A pacemaker wire is visualized in the right atrium. Aortic Valve: The aortic valve leaflets are mildly thickened. There is moderate thickening of the non coronary cusp. Systolic excursion of the non coronary cusp is reduced. There is no evidence of aortic regurgitation. There is mild aortic stenosis. The mean gradient of the aortic valve is 7 mmHg. The peak instantaneous gradient of the aortic valve is 12 mmHg. The aortic valve area, by peak velocities, is calculated at 1.9 cm2. The aortic valve area, by VTI's, is calculated at 1.7 cm2. Mitral Valve: There is mitral annular calcification. The mitral valve leaflets are mildly thickened. There is mild to moderate mitral regurgitation. There is no evidence of mitral stenosis. Tricuspid Valve: The tricuspid valve leaflets are normal. There is trace tricuspid regurgitation. Unable to estimate the right ventricular systolic pressure. There is no tricuspid stenosis. Pulmonic Valve: The pulmonic valve structure is not well visualized. There is a trace pulmonic regurgitation. There is no pulmonic stenosis. Pericardium: There is no significant pericardial effusion. A pericardial fat pad is visualized. Aorta: There is no dilatation of the ascending aorta. The aortic arch is not well visualized. There is no dilation of the aortic root. Pulmonary Artery: The main pulmonary artery is not well visualized. Venous: The inferior vena cava appears normal in size. There is a greater than 50% respiratory change in the inferior vena cava dimension. Contrast: Definity was used to optimize study. A total of 6 ml of diluted Definity was given IV. Summary: There are no significant changes when compared to the previous study done on 08/25/2017 Conclusions The left ventricular chamber size is normal. There are multiple regional wall motion abnormalities. There is moderately decreased left ventricular systolic function. The estimated ejection fraction is 30-35%. There is inferior and posterior wall akinesis extending to the apex. An echodense structure is seen in the LV apex measuring 0.5cm x 1.0cm. This may be a calcified false tendon vs. apical thrombus Post surgical hypokinesis of the interventricular septum is observed consistent with coronary artery bypass. The assessment of diastolic function is non-diagnostic. The left atrium is mildly dilated. A pacemaker wire is visualized in the right ventricle. A pacemaker wire is visualized in the right atrium. There is mild aortic stenosis. There is mild to moderate mitral regurgitation. There is trace tricuspid regurgitation. Unable to estimate the right ventricular systolic pressure. Measurements Name Value Normal Range RVDdMajor (2D) 4.1 cm (2.2 - 4.4) RAd ISD 4CH 5.8 cm (3.4 - 4.9) RA (A4C)W 5.1 cm (2.9 - 4.6) IVSd (2D) 1.4 cm (0.6 - 1) LVPWd (2D) 0.8 cm (0.6 - 1) LVIDd (2D) 4.7 cm (3.6 - 5.4) Aortic Annulus 2.3 cm (1.4 - 2.6) Ao root diameter (2D) 3.1 cm (2.1 - 3.5) Ascending Ao 3.2 cm (2.1 - 3.4) LA dimension (AP) 2D 4.4 cm (2.3 - 3.8) LAd ISD 4CH 5.6 cm (2.9 - 5.3) LA ISD 4CH W 4.4 cm (2.5 - 4.5) Name Value Normal Range LA ESV SP 4CH (A/L) 58 ml - LA ESV SP 2CH (A/L) 71 ml - LA ESV BP (A/L) 66 ml - LA ESV BP (A/L) index 32.3 ml/m2 - LA ESV SP 4CH (MOD) 54 ml - LA ESV SP 2CH (MOD) 66 ml - Name Value Normal Range MV E-wave Vmax 0.7 m/sec - MV deceleration time 251 msec - MV A-wave Vmax 1 m/sec - MV E:A ratio 0.7 ratio - LV septal e' Vmax 0.07 m/sec - LV lateral e' Vmax 0.09 m/sec - LV E:e' septal ratio 10 ratio - LV E:e' lateral ratio 7.8 ratio - Name Value Normal Range AV Vmax 1.7 m/sec - AV VTI 35.7 cm - AV peak gradient 12 mmHg - AV mean gradient 7 mmHg - LVOT diameter 2 cm - LVOT Vmax 1 m/sec - LVOT VTI 19.1 cm - LVOT peak gradient 4 mmHg - LVOT mean gradient 2 mmHg - DOI (VTI) 0.54 ratio - DOI (Vmax) 0.59 ratio - BUZZ (continuity Vmax) 1.9 cm2 - BUZZ (continuity VTI) 1.7 cm2 - Name Value Normal Range IVC diameter 1.4 cm - Name Value Normal Range PV Vmax 1 m/sec -
[2018-03-16] MEDS ORDERED: Amiodarone 360 MG IVPREMIX* 360 MG/200 ML BAG IV ONE (16:31)
[2018-03-16] MEDS ORDERED: Amiodarone 360 MG IVPREMIX* 360 MG/200 ML BAG IV SCH (16:36)
[2018-03-16] MEDS ORDERED: Melatonin 3 MG TAB PO PRN (17:01)
[2018-03-16] MEDS: Clopidogrel TAB* 75 MG PO SCH (17:57)
[2018-03-16] MEDS: Aspirin EC TAB* 325 MG PO SCH (17:57)
--- NOTE | 2018-03-16 20:31 | CONS ---
CONSULTATION REPORT: DATE OF CONSULT: 03/16/18 REQUESTING PROVIDER: Pj Tam NP CONSULTING SERVICE: Infectious Disease. REASON FOR CONSULT: E. coli bacteremia. IMPRESSION: 1. Escherichia coli cystitis and prostatitis and subsequent bacteremia. No obstructive uropathy on CT imaging. Suspect underlying benign prostatic hypertrophy. Denies symptoms of incomplete emptying. 2. Ventricular tachycardia with ICD discharge. 3. Type 2 diabetes. 4. Coronary artery disease status post coronary artery bypass and ischemic cardiomyopathy, last ejection fraction of 45%. RECOMMENDATIONS: I agree with cefepime. The E. coli has grown over the last few months, has been susceptible to cephalosporins. We will await final susceptibility here. He does carry a diagnosis of FLUOROQUINOLONE allergy which was footdrop after taking LEVAQUIN. As far as his long-term treatment, we will consider an alternative oral antibiotic, but with some consideration for IV therapy as well given fluoroquinolones have the best penetration of the prostate when given by mouth. HISTORY OF PRESENT ILLNESS: This is a 77-year-old male with an ICD, admitted with ICD discharge, fever, and suprapubic pain. He has had pain and some urinary frequency along with fever and change in mental status a couple of times during the fall and has grown E. coli in the urine in January, had a week of Augmentin with resolution of symptoms, but about a week later, symptoms came back. Another course of Augmentin with improvement. This time around, he developed change in mental status, fever, decreased appetite, a feeling like there was a soft ball in his gut and bladder area. He came to the hospital yesterday. He has E. coli in 2 of 2 blood culture bottles, E. coli in the urine. He was febrile to 38 degrees on arrival. He was started on ceftriaxone , had IV fluids. He is changed to cefepime today. He has had some runs of ventricular tachycardia when seen by Cardiology. He notes discharge of his ICD while he has been here. His white count yesterday was 16, it is 11 today. His creatinine was 1.4. It is 1.2 today. Urinalysis showed blood and leukocyte esterase. Influenza PCR was negative. He has some nocturia, feels like he empties his bladder completely. PAST MEDICAL HISTORY: 1. Coronary artery disease status post CABG and ischemic cardiomyopathy. 2. ICD. 3. Hypertension. 4. Ventricular tachycardia. 5. Gastroesophageal reflux disease. 6. Type 2 diabetes. 7. Hyperlipidemia. 8. Obesity. 9. Peripheral vascular disease. 10. Diverticulitis. 11. Status post laparoscopic cholecystectomy. 12. Status post anal fissure repair. MEDICATIONS: 1. Tylenol. 2. Amiodarone. 3. Lipitor. 4. Cefepime 2 g every 12 hours. 5. Plavix. 6. Cilostazol. 7. Heparin subcutaneous injection. 8. Insulin glargine. 9. Potassium. 10. Tamsulosin. ALLERGIES: VANCOMYCIN, QUINOLONES. He developed footdrop shortly after taking LEVAQUIN. FAMILY HISTORY: No recurrent infections. SOCIAL HISTORY: Lives in [place] with his . He has no sick contacts or travel. No injection drugs. REVIEW OF SYSTEMS: All negative except as noted above in the history of present illness, a 14-point review. PHYSICAL EXAM: Vital Signs: Temperature is 36.5, heart rate 100, respiratory rate 20, blood pressure 123/45, oxygen saturation 95% on room air. In general, he is awake and not in distress. Neurologic: He is oriented x3. Follows all commands. HEENT: There is no conjunctival hemorrhage. Oropharynx: No lesions. Neck: Supple without mass. Heart: Regular rate and rhythm. Lungs: Clear to auscultation bilaterally. Abdomen: Soft, nontender, nondistended. There is no flank tenderness to palpation. Skin: There is no rash or splint hemorrhages. Musculoskeletal: There is no spine tenderness to palpation or joint cellulitis. DIAGNOSTIC STUDIES/LAB DATA: White blood cell count 11, hemoglobin 11, platelets 109, MCV is 98. Creatinine 1.2, BUN 15. Please see impression and recommendations outlined above. Thank you for asking me to see Mr. Teixeira in consultation. [id number]/[facility] #: [id number] SOLE
[2018-03-16] MEDS: Metoprolol Tartrate TAB* 25 MG PO SCH (20:42)
[2018-03-16] MEDS: Tamsulosin CAP* 0.4 MG PO SCH (20:43)
[2018-03-17] MEDS: Cefepime 2 GM in Dextrose(*) 2 GM/50 ML BAG IV SCH ×2 (00:03→13:09)
[2018-03-17] MEDS: Heparin VIAL(*) 5000 UNITS/ML VIAL (FIVE THOUSAND) SUBCUT SCH ×3 (05:47→21:05)
[2018-03-17 06:44] LABS: ABS Basophils 0 10^3/ul (0-0.2); ABS Eosinophils 0 10^3/ul (0-0.6); ABS Lymphocytes 1.3 10^3/ul (1.0-4.8); ABS Neutrophils 5.7 10^3/ul (1.5-7.7); ABS Nucleated RBC 0 10^3/ul; Eosinophil % 0.5 %; Hematocrit 33 % (42-52); Hemoglobin 11.3 g/dl (14.0-18.0); Lymphocyte % 15.9 %; Mean Corpuscular HGB Conc 34 g/dl (31-36); Mean Corpuscular Hemoglobin 33 pg (27-31); Mean Corpuscular Volume 96 fL (80-94); Mean Platelet Volume 6.6 fL (7.4-10.4); Nucleated Red Blood Cells % 0; Platelet Count 103 10^3/ul (150-450); Red Blood Count 3.45 10^6/ul (4.00-5.40); Red Cell Distribution Width 19 % (10.5-15)
[2018-03-17 07:01] LABS: EGFR Non-African American 61.7 (>60)
[2018-03-17] MEDS: Insulin LISPRO* 1 UNITS UNIT SUBCUT SCH ×3 (07:51→17:00)
[2018-03-17] MEDS ORDERED: Potassium Chlor TAB* 20 MEQ TAB.ER PO ONE (08:12)
[2018-03-17] MEDS ORDERED: Magnesium Sulfate 2 GM IV* 2 GM/50 ML BAG IVPB ONE (08:12)
--- NOTE | 2018-03-17 08:15 | PN ---
Subjective Date of Service: 03/17/18 Interval History: pt states "this is the best I have felt in months". He reports some generalized weakness from "laying around" but states he did get up to use the bathroom and felt steady on his feet. Denies any further firing of ICD. Denies CP/SOB. No fevers or chills. Reports good appetite. Had some loose stool this am. C/o LUQ "pain or stitch" with movement. Objective Active Medications: Acetaminophen (Tylenol Tab*) 650 mg PO Q4H PRN PRN Reason: FEVER/PAIN Aspirin (Ecotrin Ec Tab*) 325 mg PO QPM [facility] Last Admin: 03/16/18 17:57 Dose: 325 mg Atorvastatin Calcium (Lipitor*) 10 mg PO DAILY [facility]; Protocol Last Admin: 03/16/18 08:50 Dose: 10 mg Cilostazol (Pletal Tab*) 100 mg PO BID [facility] Last Admin: 03/16/18 20:43 Dose: 100 mg Clopidogrel Bisulfate (Plavix Tab*) 75 mg PO QPM [facility] Last Admin: 03/16/18 17:57 Dose: 75 mg Dextrose (D50w Syringe 50 Ml*) 12.5 gm IV PUSH .FOR FS < 60 - SS PRN PRN Reason: FS < 60 Heparin Sodium (Porcine) (Heparin Vial(*)) 5,000 units SUBCUT Q8HR [facility] Last Admin: 03/17/18 05:47 Dose: 5,000 units Cefepime HCl (Maxipime 2 Gm In Dextrose Duplex (*)) 2 gm in 50 mls @ 100 mls/ hr IV Q12H [facility] Last Admin: 03/17/18 00:03 Dose: 100 mls/hr Amiodarone HCl (Nexterone 360 Mg/200 Ml Ivpremix*) 360 mg in 200 mls @ 16.667 mls/hr IV .SEE PROTOCOL [facility]; Protocol Last Admin: 03/17/18 04:19 Dose: 16.667 mls/hr Magnesium Sulfate (Magnesium Sulfate 2 Gm Iv*) 2 gm in 50 mls @ 50 mls/hr IVPB ONCE ONE Stop: 03/17/18 09:11 Insulin Glargine (Lantus(*)) 35 units SUBCUT BID [facility] Last Admin: 03/16/18 20:43 Dose: 35 units Insulin Human Lispro (Humalog*) 0 units SUBCUT [facility]; Protocol Last Admin: 03/17/18 07:51 Dose: Not Given Melatonin (Melatonin) 3 mg PO QPM PRN; Protocol PRN Reason: SLEEP Metoprolol Tartrate (Lopressor Tab*) 37.5 mg PO BID [facility] Last Admin: 03/16/18 20:42 Dose: 37.5 mg Pantoprazole Sodium (Protonix Tab (Nf)) 40 mg PO QAM [facility] Last Admin: 03/16/18 08:50 Dose: 40 mg Potassium Chloride (Klor Con Er Tab*) 20 meq PO ONCE ONE Stop: 03/17/18 08:13 Potassium Chloride (Klor Con Er Tab*) 40 meq PO DAILY [facility] Tamsulosin HCl (Flomax Cap*) 0.4 mg PO BEDTIME [facility] Last Admin: 03/16/18 20:43 Dose: 0.4 mg Vital Signs - 8 hr 03/17/18 03/17/18 03/17/18 06:16 06:30 06:46 Temperature Pulse Rate 77 82 84 Respiratory 22 15 13 Rate Blood Pressure 111/67 108/56 115/61 (mmHg) O2 Sat by Pulse 95 95 98 Oximetry 03/17/18 03/17/18 03/17/18 07:00 07:01 07:15 Temperature Pulse Rate 82 82 82 Respiratory 21 21 13 Rate Blood Pressure 108/55 109/68 (mmHg) O2 Sat by Pulse 94 96 98 Oximetry 03/17/18 03/17/18 03/17/18 07:30 07:45 07:50 Temperature Pulse Rate 76 85 Respiratory 22 21 19 Rate Blood Pressure 118/61 120/85 (mmHg) O2 Sat by Pulse 95 98 Oximetry Oxygen Devices in Use Now: None Appearance: 77 yo male A+O x3 in NAD Eyes: No Scleral Icterus, PERRLA Ears/Nose/Mouth/Throat: Mucous Membranes Moist Neck: NL Appearance and Movements; NL JVP Respiratory: Symmetrical Chest Expansion and Respiratory Effort, Clear to Auscultation Cardiovascular: NL Sounds; No Murmurs; No JVD, RRR, No Edema Abdominal: NL Sounds; No Tenderness; No Distention, - - obese - no pain to LUQ with palpation Extremities: No Edema, No Clubbing, Cyanosis Skin: No Rash or Ulcers, No Nodules or Sclerosis Neurological: Alert and Oriented x 3, NL Sensation, NL Muscle Strength and Tone Lines/Tubes/Other Access: Clean, Dry and Intact Peripheral IV Nutrition: Taking PO's Result Diagrams: 03/17/18 06:18 03/17/18 06:18 Additional Lab and Data: Lab Results 03/15/18 03/15/18 Range/Units 11:57 11:57 WBC 16.1 H (3.5-10.8) 10^3/ul RBC 3.83 L (4.00-5.40) 10^6/ul Hgb 12.5 L (14.0-18.0) g/dl Hct 37 L (42-52) % MCV 97 H (80-94) fL MCH 33 H (27-31) pg MCHC 34 (31-36) g/dl RDW 18 H (10.5-15) % Plt Count 132 L (150-450) 10^3/ul MPV 5.9 L (7.4-10.4) fL Neut % (Auto) Pending Lymph % (Auto) Pending [place] % (Auto) Pending Eos % (Auto) Pending Baso % (Auto) Pending Absolute Neuts (auto) Pending Absolute Lymphs (auto) Pending Absolute Monos (auto) Pending Absolute Eos (auto) Pending Absolute Basos (auto) Pending Absolute Nucleated RBC Pending Nucleated RBC % Pending Sodium 131 L (135-145) mmol/L Potassium 3.7 (3.5-5.0) mmol/L Chloride 99 L (101-111) mmol/L Carbon Dioxide 19 L (22-32) mmol/L Anion Gap 13 H (2-11) mmol/L BUN 18 (6-24) mg/dL Creatinine 1.47 H (0.67-1.17) mg/dL Est GFR ( Amer) 56.2 (>60) Est GFR (Non-Af Amer) 46.5 (>60) BUN/Creatinine Ratio 12.2 (8-20) Glucose 156 H (70-100) mg/dL Calcium 9.0 (8.6-10.3) mg/dL Total Bilirubin 1.30 H (0.2-1.0) mg/dL AST 13 (13-39) U/L ALT 14 (7-52) U/L Alkaline Phosphatase 78 (34-104) U/L Troponin I 0.02 (<0.04) ng/mL Total Protein 6.6 (6.4-8.9) g/dL Albumin 3.7 (3.2-5.2) g/dL Globulin 2.9 (2-4) g/dL Albumin/Globulin Ratio 1.3 (1-3) Microbiology and Other Data: Microbiology 03/15/18 11:56 Aerobic Blood Culture - Preliminary Blood Venous Escherichia Coli Anaerobic Blood Culture - Preliminary Escherichia Coli 03/15/18 15:36 Influenza Types A,B Antigen - Final Nasal Specimen received for Influenza A/B Molecular testing Assess/Plan/Problems-Billing Assessment: 77 yo male with a PMH of DM2, CAD, HTN, hx of vatch s/p defibrillator, cardiomyopathy, obesity, PAD who presented to the ED on 03/15 with c/o of not feeling well, fatigue, fever and generalized weakness. recent abx in January for UTI x2 with augmentin. He reports intermittent fevers with temp 101.7 the night prior to admission. He was found to have frequent Vtach (4 episodes) with pacer interrogation, 03/16 frequent nonsustained vtach epsiodes, transfered to ICU for amiodarone gtt. Found to have ecoli bacteremia. - Patient Problems (1) Bacteremia Comment: - Sepsis on admission, now resolved. BC growing ecoli. Suspect prostatitis/ uti. - Abdomen/Pelvis CT w/o no obstructive uropathy. chest xray - negative. - Repeat BC negative - Continue cefepime - Appreciate ID consult - will need PO abx on DC (2) Ventricular tachycardia Comment: -Resolved with Amio gtt - in the setting of hypomagnesium & bacteremia - hx of vtach s/p defibrillator - interrogation showing firing at home recently. Was found to have mg 1.1 on admission -> given replacement, still low this am 1.7 in which he is ordered 2gm IV x1 and will repeat mg+ level in am. - Due to increase in nonsustained VTach runs yesterday -> transfer to [facility] yesterday for amio gtt. - appreciate cardiology consult - recommended decreasing BB back to home dose. Start amiodarone 200 mg BID x1 week, then reduce to once daily - TTE EF 30-35%, multiple regional wall motion abnormalities, echogenic structure noted is seen in the LV apex which could be a calcified false tendone vs apical thrombus - no changes from previous echo. Pt is not anticoaugulated - discussed with cardiology who states the patient is followed closely by Dr. Soriano and this is known. - Goal to keep K+ 4 and Mg+ 2 (3) CAD (coronary artery disease) Comment: - negative troponins - continue ASA, Plavix, Pletal, BB (4) Cardiac defibrillator in place (5) GERD (gastroesophageal reflux disease) Comment: - protonix (6) HTN (hypertension) Comment: - continue home dose BB, hold losartan, HTCZ, norvasc with soft BP's (7) Ischemic cardiomyopathy Comment: - last echo EF 30% in 08/2017 - no changes in repeat echo 03/16 - continue cardiac meds as stated above (8) PVD (peripheral vascular disease) Comment: - continue ASA, Plavix, Pletal (9) Type 2 diabetes mellitus Comment: - continue FSBG AC - home dose lantus 35 units BID, lispor ss (10) DVT prophylaxis Comment: HSQ (11) Full code status Status and Disposition: inpatient. Transfer to
[2018-03-17] MEDS: Atorvastatin* 10 MG TAB PO SCH (08:45)
[2018-03-17] MEDS: CMC: Pantoprazole TAB (NF) 40 MG TAB PO SCH (08:45)
[2018-03-17] MEDS: Metoprolol Tartrate TAB* 25 MG PO SCH ×2 (08:46→20:19)
[2018-03-17] MEDS: Cilostazol TAB* 100 MG PO SCH ×2 (08:46→20:19)
[2018-03-17] MEDS: Insulin GLARGINE(*) 1 UNITS UNIT SUBCUT SCH ×2 (08:48→20:20)
[2018-03-17] MEDS ORDERED: Potassium Chlor TAB* 10 MEQ TAB.ER PO SCH (09:00)
[2018-03-17] MEDS: Amiodarone TAB* 200 MG PO SCH ×2 (10:39→20:19)
[2018-03-17] MEDS: Aspirin EC TAB* 325 MG PO SCH (17:00)
[2018-03-17] MEDS: Clopidogrel TAB* 75 MG PO SCH (17:00)
[2018-03-17] MEDS: Tamsulosin CAP* 0.4 MG PO SCH (20:19)
[2018-03-18] MEDS: Cefepime 2 GM in Dextrose(*) 2 GM/50 ML BAG IV SCH ×2 (00:15→12:03)
[2018-03-18 05:51] LABS: ABS Basophils 0 10^3/ul (0-0.2); ABS Eosinophils 0.1 10^3/ul (0-0.6); ABS Lymphocytes 1.4 10^3/ul (1.0-4.8); ABS Monocytes 0.7 10^3/ul (0-0.8); ABS Neutrophils 4.5 10^3/ul (1.5-7.7); ABS Nucleated RBC 0 10^3/ul; Eosinophil % 1.3 %; Hematocrit 32 % (42-52); Hemoglobin 10.7 g/dl (14.0-18.0); Lymphocyte % 21.5 %; Mean Corpuscular HGB Conc 34 g/dl (31-36); Mean Corpuscular Hemoglobin 33 pg (27-31); Mean Corpuscular Volume 96 fL (80-94); Mean Platelet Volume 6.2 fL (7.4-10.4); Nucleated Red Blood Cells % 0; Platelet Count 116 10^3/ul (150-450); Red Blood Count 3.27 10^6/ul (4.00-5.40); Red Cell Distribution Width 18 % (10.5-15); White Blood Count 6.7 10^3/ul (3.5-10.8)
[2018-03-18] MEDS: Heparin VIAL(*) 5000 UNITS/ML VIAL (FIVE THOUSAND) SUBCUT SCH ×3 (05:51→22:00)
[2018-03-18 06:14] LABS: EGFR Non-African American 63.6 (>60)
[2018-03-18] MEDS: Insulin LISPRO* 1 UNITS UNIT SUBCUT SCH ×3 (07:16→16:55)
[2018-03-18] MEDS ORDERED: Magnesium Sulfate 2 GM IV* 2 GM/50 ML BAG IVPB ONE (07:36)
[2018-03-18] MEDS ORDERED: Potassium Chlor TAB* 20 MEQ TAB.ER PO ONE (07:37)
[2018-03-18] MEDS: Atorvastatin* 10 MG TAB PO SCH (08:17)
[2018-03-18] MEDS: Cilostazol TAB* 100 MG PO SCH ×2 (08:17→21:58)
[2018-03-18] MEDS: Amiodarone TAB* 200 MG PO SCH ×2 (08:17→21:59)
[2018-03-18] MEDS: CMC: Pantoprazole TAB (NF) 40 MG TAB PO SCH (08:17)
[2018-03-18] MEDS: Insulin GLARGINE(*) 1 UNITS UNIT SUBCUT SCH ×2 (08:18→22:00)
[2018-03-18] MEDS: Metoprolol Tartrate TAB* 25 MG PO SCH ×2 (08:18→21:59)
--- NOTE | 2018-03-18 12:54 | PN ---
Subjective Date of Service: 03/18/18 Interval History: Patient reports he continues to "feel much much better". He denies any palpitations, no firing of ICD. Denies SOB/CP Objective Active Medications: Acetaminophen (Tylenol Tab*) 650 mg PO Q4H PRN PRN Reason: FEVER/PAIN Amiodarone HCl (Cordarone Tab*) 200 mg PO BID [facility] Stop: 03/23/18 21:01 Last Admin: 03/18/18 08:17 Dose: 200 mg Aspirin (Ecotrin Ec Tab*) 325 mg PO QPM [facility] Last Admin: 03/17/18 17:00 Dose: 325 mg Atorvastatin Calcium (Lipitor*) 10 mg PO DAILY [facility]; Protocol Last Admin: 03/18/18 08:17 Dose: 10 mg Cilostazol (Pletal Tab*) 100 mg PO BID [facility] Last Admin: 03/18/18 08:17 Dose: 100 mg Clopidogrel Bisulfate (Plavix Tab*) 75 mg PO QPM [facility] Last Admin: 03/17/18 17:00 Dose: 75 mg Dextrose (D50w Syringe 50 Ml*) 12.5 gm IV PUSH .FOR FS < 60 - SS PRN PRN Reason: FS < 60 Heparin Sodium (Porcine) (Heparin Vial(*)) 5,000 units SUBCUT Q8HR [facility] Last Admin: 03/18/18 05:51 Dose: 5,000 units Cefepime HCl (Maxipime 2 Gm In Dextrose Duplex (*)) 2 gm in 50 mls @ 100 mls/ hr IV Q12H [facility] Last Admin: 03/18/18 12:03 Dose: 100 mls/hr Insulin Glargine (Lantus(*)) 35 units SUBCUT BID [facility] Last Admin: 03/18/18 08:18 Dose: 35 units Insulin Human Lispro (Humalog*) 0 units SUBCUT AC [facility]; Protocol Last Admin: 03/18/18 12:04 Dose: 3 unit Melatonin (Melatonin) 3 mg PO QPM PRN; Protocol PRN Reason: SLEEP Metoprolol Tartrate (Lopressor Tab*) 37.5 mg PO BID [facility] Last Admin: 03/18/18 08:18 Dose: 37.5 mg Pantoprazole Sodium (Protonix Tab (Nf)) 40 mg PO QAM [facility] Last Admin: 03/18/18 08:17 Dose: 40 mg Tamsulosin HCl (Flomax Cap*) 0.4 mg PO BEDTIME [facility] Last Admin: 03/17/18 20:19 Dose: 0.4 mg Vital Signs - 8 hr 03/18/18 03/18/18 03/18/18 07:17 07:36 12:10 Temperature 98.0 F 98.4 F Pulse Rate 86 82 Respiratory 16 16 20 Rate Blood Pressure 121/61 126/63 (mmHg) O2 Sat by Pulse 96 97 Oximetry Oxygen Devices in Use Now: None Appearance: 77 yo male sitting up in bed in NAD - A+O x3 Eyes: No Scleral Icterus, PERRLA Ears/Nose/Mouth/Throat: NL Teeth, Lips, Gums, Mucous Membranes Moist Neck: NL Appearance and Movements; NL JVP Respiratory: Symmetrical Chest Expansion and Respiratory Effort, Clear to Auscultation Cardiovascular: NL Sounds; No Murmurs; No JVD, RRR, No Edema Abdominal: NL Sounds; No Tenderness; No Distention, - - obese, round Extremities: No Edema, No Clubbing, Cyanosis Skin: No Rash or Ulcers, No Nodules or Sclerosis Neurological: Alert and Oriented x 3, NL Sensation, NL Muscle Strength and Tone Lines/Tubes/Other Access: Clean, Dry and Intact Peripheral IV Nutrition: Taking PO's Result Diagrams: 03/18/18 05:25 03/18/18 05:25 Additional Lab and Data: Lab Results 03/15/18 03/15/18 Range/Units 11:57 11:57 WBC 16.1 H (3.5-10.8) 10^3/ul RBC 3.83 L (4.00-5.40) 10^6/ul Hgb 12.5 L (14.0-18.0) g/dl Hct 37 L (42-52) % MCV 97 H (80-94) fL MCH 33 H (27-31) pg MCHC 34 (31-36) g/dl RDW 18 H (10.5-15) % Plt Count 132 L (150-450) 10^3/ul MPV 5.9 L (7.4-10.4) fL Neut % (Auto) Pending Lymph % (Auto) Pending [place] % (Auto) Pending Eos % (Auto) Pending Baso % (Auto) Pending Absolute Neuts (auto) Pending Absolute Lymphs (auto) Pending Absolute Monos (auto) Pending Absolute Eos (auto) Pending Absolute Basos (auto) Pending Absolute Nucleated RBC Pending Nucleated RBC % Pending Sodium 131 L (135-145) mmol/L Potassium 3.7 (3.5-5.0) mmol/L Chloride 99 L (101-111) mmol/L Carbon Dioxide 19 L (22-32) mmol/L Anion Gap 13 H (2-11) mmol/L BUN 18 (6-24) mg/dL Creatinine 1.47 H (0.67-1.17) mg/dL Est GFR ( Amer) 56.2 (>60) Est GFR (Non-Af Amer) 46.5 (>60) BUN/Creatinine Ratio 12.2 (8-20) Glucose 156 H (70-100) mg/dL Calcium 9.0 (8.6-10.3) mg/dL Total Bilirubin 1.30 H (0.2-1.0) mg/dL AST 13 (13-39) U/L ALT 14 (7-52) U/L Alkaline Phosphatase 78 (34-104) U/L Troponin I 0.02 (<0.04) ng/mL Total Protein 6.6 (6.4-8.9) g/dL Albumin 3.7 (3.2-5.2) g/dL Globulin 2.9 (2-4) g/dL Albumin/Globulin Ratio 1.3 (1-3) Microbiology and Other Data: Microbiology 03/15/18 11:56 Aerobic Blood Culture - Preliminary Blood Venous Escherichia Coli Anaerobic Blood Culture - Preliminary Escherichia Coli 03/15/18 15:36 Influenza Types A,B Antigen - Final Nasal Specimen received for Influenza A/B Molecular testing Assess/Plan/Problems-Billing Assessment: 77 yo male with a PMH of DM2, CAD, HTN, hx of vatch s/p defibrillator, cardiomyopathy, obesity, PAD who presented to the ED on 03/15 with c/o of not feeling well, fatigue, fever and generalized weakness. recent abx in January for UTI x2 with augmentin. He reports intermittent fevers with temp 101.7 the night prior to admission. He was found to have frequent Vtach (4 episodes) with pacer interrogation, 03/16 frequent nonsustained vtach epsiodes, transfered to ICU for amiodarone gtt. Found to have ecoli bacteremia. - Patient Problems (1) Bacteremia Comment: - Sepsis on admission, now resolved. BC growing ecoli. Suspect prostatitis/ uti. - Abdomen/Pelvis CT w/o no obstructive uropathy. chest xray - negative. - Repeat BC negative - Continue cefepime - Appreciate ID consult - will need PO abx on DC (2) Ventricular tachycardia Comment: -Resolved with Amio gtt -> given for 24 hrs - in the setting of hypomagnesium & bacteremia - hx of vtach s/p defibrillator - interrogation showing firing at home recently. Was found to have mg 1.1 on admission -> given replacement, still low this am 1.7 in which he is ordered 2gm IV x1 and will repeat mg+ level in am. - appreciate cardiology consult - recommended decreasing BB back to home dose. amiodarone 200 mg BID x1 week, then reduce to once daily - TTE EF 30-35%, multiple regional wall motion abnormalities, echogenic structure noted is seen in the LV apex which could be a calcified false tendon vs apical thrombus - no changes from previous echo. Pt is not anticoagulated - discussed with cardiology who states the patient is followed closely by Dr. Soriano and this is known. - Goal to keep K+ 4 and Mg+ 2 - started PO amiodarone 03/17 - 200 mg BID for 7 days then switch to once daily - Cards recommended adding on TSH/LFTs after amio loading - > LFTs normal. TSH pending. (3) CAD (coronary artery disease) Comment: - negative troponins - continue ASA, Plavix, Pletal, BB (4) Cardiac defibrillator in place (5) GERD (gastroesophageal reflux disease) Comment: - protonix (6) HTN (hypertension) Comment: - continue home dose BB, restart losartan and norvasc. Hold HTCZ (7) Ischemic cardiomyopathy Comment: - last echo EF 30% in 08/2017 - no changes in repeat echo 03/16 - continue cardiac meds as stated above (8) PVD (peripheral vascular disease) Comment: - continue ASA, Plavix, Pletal (9) Type 2 diabetes mellitus Comment: - continue FSBG AC - home dose lantus 35 units BID, lispor ss (10) DVT prophylaxis Comment: HSQ (11) Full code status Status and Disposition: inpatient. Possible DC to home tomorrow.
[2018-03-18] MEDS: Aspirin EC TAB* 325 MG PO SCH (16:55)
[2018-03-18] MEDS: Clopidogrel TAB* 75 MG PO SCH (16:55)
[2018-03-18] MEDS: Tamsulosin CAP* 0.4 MG PO SCH (21:58)
[2018-03-19] MEDS: Cefepime 2 GM in Dextrose(*) 2 GM/50 ML BAG IV SCH (00:55)
[2018-03-19] MEDS: Heparin VIAL(*) 5000 UNITS/ML VIAL (FIVE THOUSAND) SUBCUT SCH ×2 (05:45→14:49)
[2018-03-19] MEDS: Insulin LISPRO* 1 UNITS UNIT SUBCUT SCH ×2 (08:17→13:24)
[2018-03-19] MEDS ORDERED: amLODIPine TAB* 5 MG PO SCH (09:00)
[2018-03-19] MEDS ORDERED: Losartan TAB* 25 MG PO SCH (09:00)
[2018-03-19] MEDS: Insulin GLARGINE(*) 1 UNITS UNIT SUBCUT SCH (10:36)
[2018-03-19] MEDS: Metoprolol Tartrate TAB* 25 MG PO SCH (10:37)
[2018-03-19] MEDS: Amiodarone TAB* 200 MG PO SCH (10:37)
[2018-03-19] MEDS: CMC: Pantoprazole TAB (NF) 40 MG TAB PO SCH (10:38)
[2018-03-19] MEDS: Cilostazol TAB* 100 MG PO SCH (10:38)
[2018-03-19] MEDS: Atorvastatin* 10 MG TAB PO SCH (10:38)
--- NOTE | 2018-03-19 10:38 | PN ---
Progress Note - Progress Note Date of Service: 03/19/18 SOAP: Subjective: CC: prostatitis HPI: 77 year old man with ICD and Ecoli bacteremia due to UTI. VT resolved. No fever, rash or diarrhea. Urinary frequency improved. 6 years ago he took levaquin for 3 days. A month later he had left foot drop that resolved a few months later. Objective: Vital Signs Temp 36.3 C 03/19/18 07:51 Pulse 76 03/19/18 07:51 Resp 20 03/19/18 07:51 BP 132/64 03/19/18 07:51 Pulse Ox 97 03/19/18 07:51 Intake & Output 03/18/18 03/19/18 03/19/18 18:59 06:59 18:59 Intake Total 720 200 120 Output Total 500 625 350 Balance 220 -425 -230 Intake: Oral 720 200 120 Output: Urine 500 625 350 Other: # Voids 3 Gen:awake, no distress HEENT: no thrush Heart:RRR no murmur Lungs:CTA BL Abd:+BS NTND soft Skin: no rash Laboratory Results - last 24 hr 03/18/18 03/18/18 03/18/18 05:25 11:20 16:16 Sodium 133 L Potassium 3.7 Chloride 107 Carbon Dioxide 19 L Anion Gap 7 BUN 16 Creatinine 1.12 Est GFR ( Amer) 76.9 Est GFR (Non-Af Amer) 63.6 BUN/Creatinine Ratio 14.3 Glucose 116 H POC Glucose (mg/dL) 155 H 161 H Calcium 8.4 L Magnesium 1.7 L TSH 6.90 H Free T4 1.01 Free T3 2.90 Total T3 53 L 03/19/18 07:33 Sodium Potassium Chloride Carbon Dioxide Anion Gap BUN Creatinine Est GFR ( Amer) Est GFR (Non-Af Amer) BUN/Creatinine Ratio Glucose POC Glucose (mg/dL) 92 Calcium Magnesium TSH Free T4 Free T3 Total T3 Assessment: 1. Ecoli acute prostatitis w bacteremia 2. VT 3. ICD 4. question of FQ adverse effect which is dubious Plan: 1. 3 weeks antibiotics; PO FQ best option for prostate penetration. Recommended IV for duration which he declines due to bad experience with [facility]c in the past. He is willing to accept risk of neuro effect of FQ if it means getting rid of this infection. When he leaves levaquin 500 mg po daily day 5/ 21. 35 minutes floor time >50% face to face in counseling regarding antibiotic options. All questions answered.
[2018-03-19] MEDS ORDERED: Potassium Chlor TAB* 10 MEQ TAB.ER PO SCH (13:00)
[2018-03-19] MEDS ORDERED: Magnesium Oxide TAB* 400 MG PO SCH (13:00)
[2018-03-19] MEDS ORDERED: Levothyroxine TAB* 25 MCG TAB PO SCH (13:00)
--- NOTE | 2018-03-19 13:24 | PN ---
Progress Note - Progress Note Date of Service: 03/19/18 Note: Time spent on discharge inclouding exam of patient, discussion with patient, , nurse, CM, review of EMR and preparation of discharge documents 40 minutes.
[2018-03-19 14:04] VITALS: BP 133/67
[2018-03-19] MEDS ORDERED: ceFAZolin 1 GM ADVAN(*) 1 GM in NS 0.9% 50 ML* 50 ML IVPB SCH (16:00)
[2018-03-19] MEDS ORDERED: Levofloxacin TAB* 500 MG PO SCH (16:00)
--- NOTE | 2018-03-20 03:45 | DS ---
CC: Dr. Jimenez; Dr. Mcguire; Dr. Soriano * DISCHARGE SUMMARY: DATE OF ADMISSION: DATE OF DISCHARGE: 03/19/18 HOSPITAL COURSE: This 77-year-old man presented after a prolonged illness. He was treated for UTI. He was vomiting at home at times. He felt poorly, his ICD fired several times. I think that precipitated him coming in. His ICD fired at least once after being admitted here. He got potassium and magnesium repletion. He was started on amiodarone. He was found to have E. coli bacteremia as well as E. coli in his urine. He was felt to have prostatitis. Dr. Mcguire saw him in consultation. He was treated with cefazolin intravenously in the hospital and will complete a 21-day course of antibiotics with oral levofloxacin at home. He felt much better by the time of discharge. He was also found to have hypothyroidism with his TSH 6.90. He is being started on levothyroxine on the day of discharge. FINAL DIAGNOSES: 1. Prostatitis with bacteremia. 2. Ventricular tachycardia. 3. Coronary artery disease. 4. Hypomagnesemia. 5. Hypokalemia. 6. Diabetes mellitus. DISCHARGE MEDICATIONS: 1. Amiodarone 200 mg b.i.d. for 4 days then once daily. 2. Levofloxacin 500 mg daily for 17 days. 3. Levothyroxine 25 mcg daily. 4. Magnesium oxide 400 mg b.i.d. 5. Potassium chloride 10 mEq b.i.d. 6. Tamsulosin 0.4 mg h.s. 7. Hydrochlorothiazide 12.5 mg daily. 8. Metoprolol tartrate 37.5 mg daily. 9. Celecoxib 100 mg daily. 10. Cilostazol 100 mg b.i.d. 11. Clopidogrel 75 mg h.s. 12. Aspirin 325 mg in the evening. 13. Lispro insulin as prescribed. 14. Glargine insulin 35 units b.i.d. 15. Amlodipine 5 mg daily. 16. Pantoprazole 40 mg daily. 17. Glucagon 1 mg p.r.n. 18. Diazepam tablet p.r.n. 19. Sildenafil 50 mg daily p.r.n. 20. Nitroglycerin 0.4 mg sublingual every 5 minutes p.r.n. 21. Acetaminophen 1000 mg every 6 hours p.r.n. 22. [place]-3 fatty acids 1000 mg t.i.d. 23. Multivitamin with mineral 1 tablet daily. 24. Losartan 50 mg daily. 25. Rosuvastatin 5 mg daily. 26. Hydrocortisone pramoxine 3 times daily p.r.n. CONDITION ON DISCHARGE: improved. DISPOSITION ON DISCHARGE: discharge to home [id number]/[facility] #: [id number] [facility]
== END 2018-03-19 15:00 | disposition home or self-care (01) | DRG 872 ==
LOC: ED 11:15 → MEDTELE 14:29 → ICU 03-16 10:51 → MEDTELE 03-17 12:07
PROVIDERS: ADMIT Hospitalist; ATTEND Internal Medicine
DX: A41.51 Sepsis due to Escherichia coli [E. coli] (principal); I47.2 Ventricular tachycardia; N41.0 Acute prostatitis; N39.0 Urinary tract infection, site not specified; E11.51 Type 2 diabetes mellitus with diabetic peripheral angiopathy without gangrene; I25.5 Ischemic cardiomyopathy; E83.42 Hypomagnesemia; I11.9 Hypertensive heart disease without heart failure; B96.20 Unspecified Escherichia coli [E. coli] as the cause of diseases classified elsewhere; I25.10 Atherosclerotic heart disease of native coronary artery without angina pectoris; E87.6 Hypokalemia; K21.9 Gastro-esophageal reflux disease without esophagitis; E78.2 Mixed hyperlipidemia; E66.9 Obesity, unspecified; N40.0 Benign prostatic hyperplasia without lower urinary tract symptoms; Z68.34 Body mass index [BMI] 34.0-34.9, adult; Z95.1 Presence of aortocoronary bypass graft; Z79.84 Long term (current) use of oral hypoglycemic drugs; Z79.1 Long term (current) use of non-steroidal anti-inflammatories (NSAID); Z79.02 Long term (current) use of antithrombotics/antiplatelets; Z79.82 Long term (current) use of aspirin; Z79.4 Long term (current) use of insulin; Z79.899 Other long term (current) drug therapy; Z88.8 Allergy status to other drugs, medicaments and biological substances; Z82.3 Family history of stroke; Z87.891 Personal history of nicotine dependence; Z95.810 Presence of automatic (implantable) cardiac defibrillator
CPT/HCPCS: 36415; 71045; 74176; 80048; 80053; 80076; 81003; 81015; 83605; 83735; 84145; 84439; 84443; 84479; 84481; 84484; 85025; 85610; 85730; 87040; 87077; 87086; 87186; 87205; 87641; 93005; 93306; 99284; A9270-GY; C8929; J0282; J0690; J0692; J0696; J1644; J3475